=== PATIENT | female | born 1940 | race Hispanic/Latino ===

== ENCOUNTER 2021-07-29 16:27 | Emergency (ER) | payer MEDICARE ==
[~2021-07-29] VITALS: Ht 157.5 cm; Wt 66.7 kg
[~2021-07-29 16:27] MED LIST: ALENDRONATE SOD10 MG PO; AMLODIPINE-BEN1 EAC2 PO; Aspirin PO; MELOXICAM15 MG PO; NORCO 7.5-3251 EACH PO; PANTOPRAZOLE SO40 MG PO; PRAVASTATIN SOD10 MG PO
[2021-07-29] MEDS ORDERED: SODIUM CHLORIDE 0.9% 500ML 500 ML IV STA (16:50)
[2021-07-29] MEDS ORDERED: SODIUM CHLORIDE 0.9% 500ML 500 ML ONE (17:18)
[2021-07-29] MEDS ORDERED: SODIUM CHLORIDE 0.9% 50ML 50 ML ONE (17:46)
[2021-07-29] MEDS ORDERED: IOPAMIDOL 370 MG/ML 200 ML INFUS..BTL INJ ONE (17:47)
[2021-07-29] MEDS ORDERED: COLACE100 MG PO (18:44)
[2021-07-29] MEDS ORDERED: FLEET ENEMA133 ML PR (18:44)
[2021-07-29 18:58] VITALS: BP 143/74
== END 2021-07-29 19:00 | disposition home or self-care (01) ==
LOC: FSED 16:43
DX: R10.31 Right lower quadrant pain (principal); K59.00 Constipation, unspecified; R11.0 Nausea; I10 Essential (primary) hypertension; E78.5 Hyperlipidemia, unspecified
CPT/HCPCS: 74177; 80053; 81003; 85025; 99284; J7040; Q9967

== ENCOUNTER 2024-09-30 13:53 | Emergency (ER) | payer MEDICARE ==
[~2024-09-30] VITALS: Ht 154.9 cm; Wt 60.3 kg
[~2024-09-30 13:53] MED LIST changes: +AMLODIPINE BESYL5 MG PO; +AMOX TR-K CLV1 EAC2 PO; +ATORVASTATIN CA20 MG PO; +COLACE100 MG PO; +FLEET ENEMA133 ML PR; +HYDROCHLOROTH12.5 MG PO; +MULTI-VITAMIN1 EACH PO; +NAMENDA10 MG PO
[2024-09-30 14:05] VITALS: PULSE 90; RESP 18; TEMP 98.1
[2024-09-30 15:45] VITALS: BP 135/76; O2SAT 98
== END 2024-09-30 15:25 | disposition home or self-care (01) ==
LOC: FSED 15:24
DX: Z48.02 Encounter for removal of sutures (principal)
CPT/HCPCS: 99282; S0630